=== PATIENT | female | born 1965 | race Caucasian/White ===

== ENCOUNTER 2024-03-04 12:45 | Day surgery (SDC) | payer OTHER ==
[2024-03-04] MEDS ORDERED: Depo-Medrol 40 MG/ML IM ONE (12:46)
[2024-03-04] MEDS ORDERED: BUPIVACAINE 0.5% VIAL IJ ONE (12:46)
[2024-03-04] MEDS ORDERED: DIPRIVAN 200 MG/20 ML IV ONE (13:45)
[2024-03-04] MEDS ORDERED: Lactated Ringers 1,000 ML IV ONE (14:07)
--- NOTE | 2024-03-04 16:40 | XRAY ---
Indication: Right shoulder and subacromial bursa injection. Intraoperative fluoroscopy provided for 12 seconds. 2 digital spot images submitted for interpretation demonstrates needle tip projecting over right glenohumeral joint superiorly. Second needle tip subacromial. Small amount of contrast injected for needle tip placement. Correlate with intraoperative findings/report.
--- NOTE | 2024-03-04 17:16 | XRAY ---
12 seconds of fluoroscopy was used in surgery for a right intra-articular shoulder and subacromial bursa injection.
== END 2024-03-04 14:22 | disposition home or self-care (01) ==
LOC: SDC-PAIN 12:45
PROVIDERS: ATTEND Psychiatry & Neurology Pain Medicine
DX: M19.011 Primary osteoarthritis, right shoulder (principal); M75.51 Bursitis of right shoulder
CPT/HCPCS: 20610; 73030; 77002; J2704; Q9966

== ENCOUNTER 2024-12-03 14:43 | Day surgery (SDC) | payer OTHER ==
[2024-12-03] MEDS ORDERED: Depo-Medrol 40 MG/ML IM ONE (14:44)
[2024-12-03] MEDS ORDERED: BUPIVACAINE 0.5% VIAL IJ ONE (14:44)
[2024-12-03] MEDS ORDERED: propofoL IV ONE (16:25)
--- NOTE | 2024-12-03 19:49 | XRAY ---
Indication: Right shoulder and subacromial bursa injection. Intraoperative fluoroscopy provided for 16 seconds. 3 digital spot image submitted for interpretation demonstrates needle tip projecting over right glenohumeral joint. Second needle tip subacromial. Small amount of contrast injected for needle tip placement. Correlate with intraoperative findings/report.
--- NOTE | 2024-12-04 18:00 | XRAY ---
16 seconds of fluoroscopy was used in surgery for a right intra-articular shoulder and subacromial bursa injection.
== END 2024-12-03 17:00 | disposition home or self-care (01) ==
LOC: SDC-PAIN 14:43
PROVIDERS: ATTEND Psychiatry & Neurology Pain Medicine
DX: M19.011 Primary osteoarthritis, right shoulder (principal); M75.51 Bursitis of right shoulder
CPT/HCPCS: 20610; 73030; 77002; J2704; Q9966